=== PATIENT | male | born 1965 | race Caucasian/White ===

== ENCOUNTER 2016-09-11 10:06 | Emergency (ER) | payer OTHER ==
[~2016-09-11] VITALS: Ht 182.9 cm; Wt 121.9 kg
[~2016-09-11 10:06] MED LIST: AZIT250T81 PO; HYDR-3702 PO; IBUP-15 PO; NAPR250T34 PO; no medications
[2016-09-11] MEDS ORDERED: ALPRAZolam 0.25 MG (XANAX) TAB PO ONE (10:20)
[2016-09-11 10:33] LABS: BILIRUBIN,URINE Negative (Negative); CLARITY,URINE Clear; COLOR,URINE Yellow; GLUCOSE, URINE (UA) Negative (Negative); LEUKOCYTE ESTERASE ,URINE Negative (Negative); UROBILINOGEN,URINE 0.2 mg/dL (0.2-1.0)
[2016-09-11 10:34] LABS: BASOPHILS % (AUTO) 0 % (0-2); EOSINOPHILS # (AUTO) 0.1 10^3uL; EOSINOPHILS % (AUTO) 1 % (0-4); LYMPHOCYTES # (AUTO) 1.8 X10^3; MEAN CORPUSCULAR HEMOGLOBIN 28.5 PG (26.0-34.0); MEAN CORPUSCULAR HGB CONC 33.5 g/dL (31.0-37.0); MEAN CORPUSCULAR VOLUME 85 FL (80-100); MEAN PLATELET VOLUME 9.7 FL (6.0-9.5); MONOCYTES # (AUTO) 0.8 X10^3; MONOCYTES % (AUTO) 8 % (3-11); NEUTROPHILS # (AUTO) 6.5 X10^3; NEUTROPHILS % (AUTO) 70 % (51-67); PLATELET COUNT 320 10^3uL (150-450); WHITE BLOOD COUNT 9.31 10^3uL (4.0-11.0)
[2016-09-11 10:37] LABS: URINE CENTRIFUGED VOLUME 12 mL
[2016-09-11 10:39] LABS: RBC,URINE 0-2 /HPF
[2016-09-11 10:43] LABS: AMPHETAMINE SCREEN, URINE Negative (Negative); CANNABINOID SCREEN, URINE Negative (Negative); METHAMPHETAMINE SCREEN URINE S POSITIVE (NEGATIVE); OPIATE SCREEN URINE Negative (Negative); PROPOXYPHENE STAT NEGATIVE (NEGATIVE)
[2016-09-11 10:48] LABS: ALBUMIN 4.2 g/dL (3.4-5.0); ANION GAP 17.9 MEQ/L (3-15); CALCULATED IONIZED CALCIUM 3.9 mg/dL (3.8-4.6); TOTAL PROTEIN 7.5 g/dL (6.4-8.5)
--- NOTE | 2016-09-11 10:57 | NUR ---
Pt states he feels better and calm. Pt resting with eyes closed upon this nurse arrival in room.
[2016-09-11 11:31] VITALS: BP 145/70
[2016-09-11] MEDS ORDERED: ALPR0.25 PO (11:40)
== END 2016-09-11 11:44 | disposition home or self-care (01) ==
LOC: EDUNIT# 10:06 → ED 10:07
DX: F43.0 Acute stress reaction (principal); F32.89 Other specified depressive episodes; F43.23 Adjustment disorder with mixed anxiety and depressed mood
CPT/HCPCS: 36415; 80053; 80307; 81003; 81015; 84443; 85025; 99283